=== PATIENT | male | born 1990 | race Two or more races ===

== ENCOUNTER 2016-09-06 16:48 | Emergency (ER) | payer OTHER ==
[2016-09-06 16:54] VITALS: TEMP 98.2; BMI 22.7
[2016-09-06] MEDS ORDERED: HYDROCODONE 5 MG/ACETAMIN 325 MG TAB PO ONE (17:20)
--- NOTE | 2016-09-06 18:06 | EDPRACDOC ---
- General Information Chief Complaint: Wound Mode of Arrival:: Car Home Medications: Home Medications Hydrocodone Bit/Acetaminophen [Lortab 5/325] 1 tab PO Q4H PRN #15 tab 02/22/15 Ibuprofen 800 mg PO Q8H PRN #20 tablet 02/22/15 Cephalexin Monohydrate [Keflex] 500 mg PO QID #28 cap 09/06/16 Hydrocodone Bit/Acetaminophen [Lortab 5/325] 1 tab PO Q4-6H PRN #15 tab Allergies/Adverse Reactions: Allergies Allergy/AdvReac Type Severity Reaction Status Date / Time No Known Allergies Allergy Verified 09/06/16 16:54 - History of Present Illness Onset: 1530 HPI: Pt states a piece of wood was stuck in machine at work and he climb on top to get piece out. To avoid getting hit he jumped from machine and hit R thigh on piece of metal. C/o R posterior thigh lac. Tetanus UTD. - Location Right Posterior Thigh Mechanism: Reports: Work Related - Tetanus Status Last Tetanus: Yes - Pain Pain Severity: Mild Bleeding: Reports: Controlled Associated Signs & Symptoms: Reports: None ED Past Medical History - History Reviewed Yes Nurses notes reviewed and agree except as marked - Social Medical History Smoking Status: Light tobacco smoker (less than 5/day) ETOH: None Substance Abuse: None EDM Review of Systems - Review of Systems Constitutional: No Symptoms Reported. negative: Fever, Chills, Weakness, Fatigue, Loss of Appetite Respiratory: No Symptoms Reported. negative: Cough, Brassy Cough, Barky Cough, Shortness of Breath, Wheezing, Hemoptysis Cardiovascular: No Symptoms Reported. negative: Chest Pain, Palpitations, Syncope, Edema, Orthopnea, PND, Skin Mottling, Cyanosis Gastrointestinal: No Symptoms Reported. negative: Pain, Constipation, Nausea, Vomiting, Diarrhea, Melena, Formula Intolerance Genitourinary: No Symptoms Reported. negative: Dysuria, Hematuria, Frequency, Discharge, Bleeding, Testicular Pain, Neurological: No Symptoms Reported. negative: Headache, Dizziness, Seizure, Numbness, Weakness, Speech Difficulty, Gait Difficulty Musculoskeletal: Femur Integumentary: Wound Allergic/Immunologic: No Symptoms Reported. negative: Hives, Itching Hematologic: No Symptoms Reported. negative: Lymphadenopathy, Easy Bruising, Easy Bleeding Psychiatric: No Symptoms Reported. negative: Anxiety, Depression, Hallucinations, Insomnia, Suicidal - Physical Exam Constitutional: Alert Oriented to: Time, Person, Place Last recorded Vital Signs: Last Vital Signs Temp 98.2 F 09/06/16 17:11 Pulse 80 09/06/16 17:11 Resp 20 09/06/16 17:11 BP 138/81 09/06/16 17:11 Pulse Ox 94 09/06/16 17:11 Oxygen Pulse Oxygen Saturation 94 O2 Device Room Air Oxygen Flow Rate Fraction of Inspired Oxygen ( FIO2) - HEENT Head: Normal ( normocephalic) - Respiratory/Cardiovascular Respiratory: Normal - CTA (BBS clear to auscultation without adventitious sounds ) Cardiovascular: Normal (RRR without murmur, gallop or rub) - Musculoskeletal Back: Normal (Non-Tender) Extremities: Normal (Normal tone, Pulses 2+ No cyanosis or edema, FROM) - Integumentary Skin: Normal, Warm, Dry, Other (R posterior proximal thigh 14cm irregular laceration) Lymphatics: Normal (no adenopathy) - Neurologic Memory Impaired: Normal Motor Function: Normal Mood Description: Normal Perception: Normal ED Procedures - Suture/Laceration Suture #1 Right Posterior Proximal Thigh Wound Length (cm): 14 Wound's Depth, Shape: irregular Wound Explored: clean Irrigated w/ Saline (ccs): 300 Betadine Prep?: Yes Anesthesia: Lidocaine w/ Epi Volume Anesthetic (ccs): 12 Wound Repaired With: Sutures Suture Size/Type: 4:0, nylon Number of Sutures: 14 (mattress, simple) Layer Closure?: Yes Deep Layer Suture Size/Type: 3:0, dexon Number Deep Layer Sutures: 2 (simple) - Differential Diagnosis Fracture, Foreign Body, Laceration - Diagnostic Imaging Hip Image interpreted by: Radiologist IMPRESSION: Laceration. Negative for radiopaque foreign body. Please note that wood is radiolucent. Decision Time to Discharge: 18:58 - Departure Disposition: Home Condition: Good Final Diagnosis: R thigh lac 14 cm intermediate Instructions: Laceration (ED) Education/Counseling Given To: Patient Education/Counseling Given Regarding: Diagnosis, Treatment, Follow Up Referrals: None,No Provider [Primary Care Provider] - One Week Andres Cesar II, MD [Staff Physician] - One Week Prescriptions: New Cephalexin Monohydrate [Keflex] 500 mg PO QID #28 cap Hydrocodone Bit/Acetaminophen [Lortab 5/325] 1 tab PO Q4-6H PRN #15 tab PRN Reason: Pain No Action Ibuprofen 800 mg PO Q8H PRN #20 tablet PRN Reason: Pain Hydrocodone Bit/Acetaminophen [Lortab 5/325] 1 tab PO Q4H PRN #15 tab PRN Reason: Pain Additional Instructions: Suture removed in 10-14 days. Return for worse or different symptoms.
--- NOTE | 2016-09-06 18:06 | DIRPT ---
CLINICAL DATA: Laceration along the proximal aspect of the right upper leg which occurred while trying to avoid being struck by lumber. Question foreign body. Initial encounter. EXAM: RIGHT HIP (WITH PELVIS) 2-3 VIEWS COMPARISON: None. FINDINGS: Gas in the soft tissues consistent with laceration is identified. No radiopaque foreign body is seen. No bony or joint abnormality is identified. IMPRESSION: Laceration. Negative for radiopaque foreign body. Please note that wood is radiolucent. Electronically Signed By: Micky Lai M.D. On: 09/06/2016 17:51
[2016-09-06 19:26] VITALS: BP 128/78; PULSE 76
== END 2016-09-06 19:25 | disposition home or self-care (01) ==
LOC: EDMC 16:48
DX: S71.111A Laceration without foreign body, right thigh, initial encounter (principal); W45.8XXA Other foreign body or object entering through skin, initial encounter; W22.8XXA Striking against or struck by other objects, initial encounter; Y93.89 Activity, other specified
CPT/HCPCS: 12035; 73502; 99282; J3490